=== PATIENT | male | born 1985 | race Caucasian/White ===

== ENCOUNTER 2025-06-28 20:56 | Emergency (ER) | payer OTHER, SELFPAY ==
[2025-06-28] VITALS (8 sets, daily range): BP systolic 166–174; BP diastolic 95–108; PULSE 48–88; RESP 20–28; TEMP 36.6; O2SAT 92–100
--- NOTE | ~2025-06-28 | CT_ITS ---
CT abdomen pelvis w con Clinical History: abdo pain upper . Comparison: None Technique: Axial images lung bases to symphysis pubis 100 mL Omnipaque 350 Coronal, sagittal reformats CT images acquired with automatic exposure control for dose reduction DLP: 906 mGy-cm Findings: Lung bases: Clear. Visualized heart and pericardium: Unremarkable. Liver: Steatosis. Gallbladder: Gallstone. Spleen: Unremarkable. Pancreas: Unremarkable. Adrenal glands: Unremarkable. Kidneys: Right kidney- No hydronephrosis. No renal stones. Left kidney- No hydronephrosis. No renal stones. Distal esophagus/stomach: Small hiatal hernia. Apparent gastric antral wall thickening but under distended Small bowel loops: Normal caliber and wall thickness. Colon: Apparent distal wall thickening but under distended. Normal RLQ appendix. Diverticula. Nodes: No enlarged nodes. Peritoneum: No ascites. No free air. Urinary bladder: Unremarkable. Prostate: Unremarkable. Bones: No acute bony abnormality. Soft tissues: Unremarkable. Aorta: No aneurysm or dissection. IVC: Unremarkable. Main portal vein/SMV/splenic vein: Patent. IMPRESSION: 1. Colitis not excluded. 2. Gastritis not excluded. Reviewed, dictated and finalized at location [facility]. [facility] [employer]PER[employer]
--- NOTE | 2025-06-28 21:03 | ED_ITS ---
HPI - Abdominal Pain General Chief Complaint: Abdominal Pain Stated Complaint: ABDOMINAL PAIN Time Seen by Provider: 06/28/25 21:02 Source: patient and family Mode of arrival: ambulatory Limitations: no limitations History of Present Illness HPI narrative: Patient is a 40-year-old male with upper abdomen pain which radiates to the back over the past day. The pain started earlier this week on and off at a minimal amounts but now it is been severe since this morning. Associated nausea and vomiting. Bowel movement yesterday with some slight looseness. MD elicited complaint: abdominal pain Pertinent past history: none Onset (ago): day(s) (One) Pain Consistency: constant Location: epigastric, LUQ and RUQ Severity: severe Pain scale (0-10): 8 Quality: cramping, stabbing and sharp Radiation: back Migration to: no migration Exacerbating factors: eating Relieving factors: nothing Context: confirms other (Patient having upper abdomen and epigastric pain for the past day which is getting more severe and associated nausea and vomiting) Associated symptoms: nausea and vomiting Treatments prior to arrival: other (OTC medication) Related Data Allergies Allergy/AdvReac Type Severity Reaction Status Date / Time No Known Allergies Allergy Verified 06/28/25 21:00 Review of Systems 2 Review of Systems: All systems reviewed & are unremarkable except as noted in HPI and below Constitutional: Constitutional: Reports no additional constitutional complaints Eyes: Eyes: Reports no additional eye complaints ENT: Reports system reviewed and no additional complaints, except as documented Cardiovascular: Cardiovascular: Reports no additional cardiovascular complaints Respiratory: Respiratory: Reports no additional respiratory complaints Gastrointestinal: Gastrointestinal: Reports no additional gastrointestinal complaints Genitourinary: Genitourinary: Reports no additional male genitourinary complaints Musculoskeletal: Musculoskeletal: Reports no additional musculoskeletal complaints Integumentary/Breasts: Skin/Breast: Reports system reviewed and no additional complaints, except as docu Neurologic: Reports system reviewed and no additional complaints, except as documented Psychiatric: Psychiatric: Reports no additional psychiatric complaints Endocrine: Endocrine: Reports no additional endocrine complaints Hematologic/Lymphatic: Hematologic/Lymphatic: Reports no additional hematologic/lymphatic complaints Allergic/Immunologic: Allergic/Immunologic: Reports no additional allergic/immunologic complaints Exam 2 Const: General: ill appearing Nutritional Appearance: well nourished O rientation/consciousness: patient oriented x3 Limitations: no limitations HENMT: Head: normal to inspection Ears: external ears normal F lucius/Nose/Sinus: Normal external nose present Eyes: Conjunctivae: conjunctivae normal Pupils: Equal, round and reactive pupils present EOM: EOMs intact bilaterally Neck: Neck: normal visual inspection Chest: Chest palpation & inspection: normal inspection of the chest Resp: Effort & Inspection: normal respiratory effort and not labored A uscultation: clear to auscultation bilaterally and no crackles Cardio: Rate: regular rate Rhythm: regular rhythm Heart sounds: no murmurs GI: Inspection: non-distended GI Palp: Yes Soft to palpation, Yes Tenderness to palpation present (GI) (Left upper quadrant and right upper quadrant and epigastric), Yes Guarding due to palpation present (GI) (Left upper quadrant), No Rigid due to palpation, No Hernia present, No Palpable mass present and Yes Rebound tenderness present Auscultation: bowels sounds not normal and Hypoactive bowel sounds present : General: Yes bladder normal to palpation Back/Spine/Pelvis: Back: no CVA tenderness Skin: General skin exam: normal color Rashes: no rashes Wounds: no wounds Neuro: General: patient oriented x3, moves all extremities and no meningeal signs Extrem: General: normal to inspection Psych: Mental Status: mental status grossly normal Affect: normal affect Attitude: cooperative Course Vital Signs Vital signs: Vital Signs Temperature 36.6 C 06/28/25 20:59 Pulse Rate 88 06/28/25 20:59 Respiratory Rate 20 06/28/25 20:59 Blood Pressure 166/99 H 06/28/25 20:59 Pulse Oximetry 100 06/28/25 20:59 Oxygen Delivery Room Air 06/28/25 20:59 Temperature 36.6 C 06/28/25 20:59 Pulse Rate 67 06/29/25 02:30 Respiratory Rate 18 06/29/25 02:30 Blood Pressure 145/101 H 06/29/25 02:30 Pulse Oximetry 100 06/29/25 02:30 Oxygen Delivery Room Air 06/29/25 02:30 MDM - Abdominal Pain MDM Narrative Medical decision making narrative: Patient is a 40-year-old male with epigastric pain and bilateral upper abdomen pain for the past day which is getting worse and associated nausea vomiting. Labs and a CT scan with contrast of the abdomen and pelvis. IV fluids. Pain control. Lab Data Attestation: I reviewed the patient's lab results. 06/28/25 21:42 06/28/25 21:42 Labs: Lab Results 06/28/25 06/28/25 Range/Units 21:41 21:42 WBC 9.6 (4.8-10.8) K/mm3 RBC 5.00 (4.70-6.10) M/mm3 Hgb 14.8 (14.0-18.0) g/dL Hct 44.3 (40.0-54.0) % MCV 88.6 (78.0-102.0) fL MCH 29.6 (27.0-31.0) pg MCHC 33.4 (32-36) g/dL RDW 13.4 (11.6-14.4) % Plt Count 288 (150-420) K/mm3 MPV 11.3 H (8.7-11.0) fl Immature Gran % (Auto) 0.3 H (0.0-0.0) % Neut % (Auto) 76.4 H (50.0-70.0) % Lymph % (Auto) 15.0 L (18.0-42.0) % [place] % (Auto) 6.9 (2.0-11.0) % Eos % (Auto) 0.8 L (1.0-6.0) % Baso % (Auto) 0.6 (0.0-1.0) % Lymph # (Auto) 1.44 (1.10-4.50) K/mm3 [place] # (Auto) 0.66 (0.10-0.90) K/mm3 Eos # (Auto) 0.08 (0.02-0.50) K/mm3 Baso # (Auto) 0.06 (0.00-0.10) K/mm3 Abs Immat Gran (auto) 0.03 H (0.00-0.00) K/mm3 Absolute Neuts (auto) 7.30 H (1.70-7.20) K/mm3 Absolute Nucleated RBC 0.00 (0.00-0.00) K/mm3 Nucleated RBC % 0.0 (0-0.0) % PT 10.4 (9.50-12.1) Seconds INR 0.9 APTT 28.2 (23.9-30.70) Sec Sodium 137 (137-145) mmol/L Potassium 4.2 (3.4-5.0) mmol/L Chloride 105 (98-107) mmol/L Carbon Dioxide 19 L (22-30) mmol/L Anion Gap 13 H (4-12) mmol/L BUN 16 (9-20) mg/dL Creatinine 0.91 (0.7-1.3) mg/dL Estim Creat Clear Calc 114 ml/min Estimated GFR > 60 (59 - ) Glucose 113 H (65-110) mg/dL Calculated Osmolality 286 (285-295) mOsm/kg Lactic Acid 1.3 (0.7-2.0) mmol/L Calcium 9.6 (8.4-10.2) mg/dL Total Bilirubin 1.0 (0.2-1.3) mg/dL AST 31 (17-59) U/L ALT 35 (6-50) U/L Alkaline Phosphatase 91 (38-126) U/L Troponin I < 0.012 (0.000-0.034) ng/mL Total Protein 7.4 (6.3-8.2) g/dL Albumin 4.5 (3.5-5.1) g/dL Lipase 48 (23-300) U/L Imaging Data Attestation: I personally reviewed and interpreted this imaging study as follows: ECG Data EKG #1: Attestation: I personally reviewed and interpreted this ECG as follows: ECG completion date: 06/28/25 ECG completion time: 22:32 normal rate, bradycardia, no ectopy, non-specific ST changes (Early repolarization noted across many leads), normal QRS, normal QT and NL axis Pacemaker function: normal pacer function Discharge Plan Discharge Clinical Impression: Biliary colic Cholelithiasis Qualifiers: Cholelithiasis location: gallbladder Cholecystitis presence: without cholecystitis Biliary obstruction: without biliary obstruction Qualified Code(s): K80.20 - Calculus of gallbladder without cholecystitis without obstruction Patient Disposition: Home Condition: Stable Instructions: Biliary Colic (ED) Additional Instructions: Please follow-up with the primary doctor in the next week to get what is called a gallbladder workup to include ultrasound and HIDA scan. Come back to the emergency room with worse pain or fever. Also please discuss blood pressure with your primary doctor. Patient Language: Georgian Prescriptions: New ondansetron 4 mg tablet,disintegrating 4 mg PO Q6H PRN (Reason: nausea and vomiting) Qty: 20 0RF hydrocodone-acetaminophen 10-325 mg tablet 1 tablet PO Q8H PRN (Reason: pain) Qty: 20 0RF Rx Instructions: 1/2-1 per dose Follow-up/Referrals: UNKNOWN,DOCTOR [Non-Staff] Stand Alone Forms: Work/School Release IP Time of Disposition: 04:18
[2025-06-28] MEDS: SODIUM CHLORIDE 0.9% IV 1,000 ML 999 ML IV CONT (21:18)
[2025-06-28] MEDS: HYDROmorphone HCL INJ (*CRX) 2 MG/ML VIAL 0.5 MG IV PUSH (21:19)
[2025-06-28] MEDS: ONDANSETRON INJ 4 MG/2 ML VIAL IV PUSH (21:19)
[2025-06-28 21:50] LABS: Hematocrit 44.3 % (40.0-54.0); Hemoglobin 14.8 g/dL (14.0-18.0); Immature Granulocyte Percent A 0.3 % (0.0-0.0); Lymphocytes Absolute Auto 1.44 K/mm3 (1.10-4.50); Mean Corpuscular HGB Conc 33.4 g/dL (32-36); Mean Corpuscular Hemoglobin 29.6 pg (27.0-31.0); Mean Corpuscular Volume 88.6 fL (78.0-102.0); Nucleated Red Blood Cells Absolute Auto 0.00 K/mm3 (0.00-0.00); Nucleated Red Blood Cells Perc 0.0 % (0-0.0); Platelet Count Result 288 K/mm3 (150-420); Red Blood Count 5.00 M/mm3 (4.70-6.10); White Blood Count 9.6 K/mm3 (4.8-10.8)
--- NOTE | 2025-06-28 21:50 | PC.NURSE ---
Pt reports no pain relief after given pain med dilaudid, pt in tears, new orders obtained for different pain med to be given. Pt placed on equipment monitor phototypesetting at this time.
[2025-06-28] MEDS: fentaNYL CITRATE INJ (*CRX) 100 MCG/2 ML VIAL 50 MCG IV PUSH (21:52)
[2025-06-28 22:03] LABS: Alanine Aminotransferase 35 U/L (6-50); Albumin Level 4.5 g/dL (3.5-5.1); Alkaline Phosphatase 91 U/L (38-126); Anion Gap 13 mmol/L (4-12); Aspartate Amino Transferase 31 U/L (17-59); Bilirubin,Total 1.0 mg/dL (0.2-1.3); Blood Urea Nitrogen 16 mg/dL (9-20); Calcium 9.6 mg/dL (8.4-10.2); Carbon Dioxide 19 mmol/L (22-30); Chloride 105 mmol/L (98-107); Estimated CRCL calculation 114 ml/min; Estimated Glomerular Filt Rate > 60; Glucose 113 mg/dL (65-110); Lipase 48 U/L (23-300); Osmolality Calculated 286 mOsm/kg (285-295); Potassium 4.2 mmol/L (3.4-5.0); Sodium 137 mmol/L (137-145); Total Protein 7.4 g/dL (6.3-8.2)
[2025-06-28 22:05] LABS: INR 0.9; Partial Thromboplastin Time 28.2 Sec (23.9-30.70); Prothrombin Time 10.4 Seconds (9.50-12.1)
--- NOTE | 2025-06-28 22:05 | ECG_ITS ---
Test Date: 2025-06-28 22:11:09 Measurements Intervals [place] Rate: 49 P: 32 VT: 178 QRS: 33 QRSD: 98 T: 34 QT: 451 QTc: 408 Interpretive Statements SINUS BRADYCARDIA OTHERWISE NORMAL ECG No previous ECG available for comparison Electronically Signed On 06-29-2025 08:14:09 GIVING OFFICER by Drake Gupta M.D.
[2025-06-28 22:29] LABS: Troponin I < 0.012 ng/mL (0.000-0.034)
--- NOTE | 2025-06-28 23:49 | PC.NURSE ---
Pt resting w/ at bedside, Pt still c/o increased pain in his abd and feeling of fullness and tightness. Explained wait time for CT results to pt. Still awaiting report. Continuing to monitor, pt BP noted elevated. ERP aware of pt BP and no new orders at this time.
[2025-06-29] MEDS: fentaNYL CITRATE INJ (*CRX) 100 MCG/2 ML VIAL 50 MCG IV PUSH ×2 (00:20→03:59)
[2025-06-29] MEDS: ONDANSETRON INJ 4 MG/2 ML VIAL IV PUSH ×2 (00:24→03:59)
[2025-06-29 00:28] VITALS: BP 160/100; PULSE 57; RESP 20; O2SAT 99
--- NOTE | 2025-06-29 01:55 | PC.NURSE ---
Pt ambulated steadily to BR to urinate. Still awaiting CT results, call placed to Xray to find out status on results. Pt states he did sleep a bit and then moved and pain started again. No vomiting since arrival to ER. Pt remains at bedside, continuing to monitor.
[2025-06-29 02:30] VITALS: BP 145/101; PULSE 67; RESP 18; O2SAT 100
--- NOTE | 2025-06-29 03:53 | PC.NURSE ---
Pt resting but still c/o pain and unable to rest. New orders obtained for another dose of pain meds. Explained to pt that report for CT is assigned, but still have no results. VSS, continuing to monitor.
--- NOTE | 2025-06-29 04:08 | PC.NURSE ---
Dr Martínez in to speak w/ pt. CT scan results back and POC discussed w/ pt.
[2025-06-29 04:25] VITALS: BP 150/104; PULSE 68; RESP 20; TEMP 36.6; O2SAT 100
--- NOTE | 2025-07-02 14:48 | PC.NURSE ---
PRELIMINARY BLOOD CULTURE REPORT; NO GROWTH IN 24 HOURS.
--- NOTE | 2025-07-03 12:10 | PC.NURSE ---
blood cultures x2 reviewed. no growth in 48 hours.
--- NOTE | 2025-07-06 13:42 | PC.NURSE ---
FINAL BLOOD CULTURE REPORT; NO GROWTH IN 5 DAYS.
== END 2025-06-29 04:25 | disposition home or self-care (01) ==
PROVIDERS: Emergency Provider Emergency Medicine; Referring Provider Internal Medicine
DX: K80.20 Calculus of gallbladder without cholecystitis without obstruction (principal)
CPT/HCPCS: 36415; 74177; 80053; 83605; 83690; 84484; 85025; 85610; 85730; 87040; 93005; 96361; 96374; 96375; 99284; J1171; J2405; J3010; J7030; Q9967